=== PATIENT | male | born 1935 | race Caucasian/White ===

== ENCOUNTER 2016-08-23 10:21 | Emergency (ER) | payer MEDICARE, OTHER ==
[~2016-08-23] VITALS: Ht 182.9 cm; Wt 104.5 kg
[2016-08-23 10:29] VITALS: BP 141/77; PULSE 86; RESP 14; TEMP 99.3; O2SAT 95
[2016-08-23] MEDS ORDERED: TETANUS/DIPHTHERIA TOXOID ADULT 0.5 ML VIAL IM ONE (10:45)
--- NOTE | 2016-08-23 10:47 | PD ---
HPI Chief Complaint: Fall Time Seen by Provider: 10:36 Travel History International Travel<30 days: No Contact w/Intl Traveler<30days: No Traveled to known affect area: No History of Present Illness HPI 80-year-old male complains of right-sided chest wall pain and right knee pain. Patient fell 2 days ago in a parking lot. Patient denies loss of consciousness. Patient denies any headache or neck pain. Patient denies any back pain. Patient states that he has sharp pain localized to the anterior aspect the right chest wall. Patient denies any shortness of breath. Patient states that the pain is worse with deep breathing. Patient complains of sharp pain localized to the right knee with increasing swelling right knee since the fall. Patient denies any weakness or numbness of extremity. Patient states that he has an abrasion to the right knee. Patient states that he is not up-to- date with TD booster. PFSH Social History Tobacco Use: No Allergies-Medications (Allergen,Severity, Reaction): Coded Allergies: No Known Allergies (Unverified , 08/23/16) Reported Meds & Prescriptions Reported Meds & Active Scripts Active Keflex (Cephalexin) 500 Mg Cap 500 Mg PO Q8H Mobic (Meloxicam) 15 Mg Tab 15 Mg PO DAILY Review of Systems General / Constitutional: No: Fever Eyes: No: Visual changes HENT: No: Headaches Cardiovascular: No: Chest Pain or Discomfort Respiratory: No: Shortness of Breath Gastrointestinal: No: Abdominal Pain Genitourinary: No: Dysuria Musculoskeletal: Positive: Pain Skin: No Rash Neurologic: No: Weakness Psychiatric: No: Depression Endocrine: No: Polydipsia Hematologic/Lymphatic: No: Easy Bruising Physical Exam Narrative GENERAL: Well-nourished, well-developed patient. SKIN: Focused skin assessment warm/dry. HEAD: Normocephalic. EYES: No scleral icterus. No injection or drainage. NECK: Supple, trachea midline. No JVD or lymphadenopathy. CARDIOVASCULAR: Regular rate and rhythm without murmurs, gallops, or rubs. RESPIRATORY: Breath sounds equal bilaterally. No accessory muscle use. GASTROINTESTINAL: Abdomen soft, non-tender, nondistended. MUSCULOSKELETAL: No cyanosis, or edema. BACK: Nontender without obvious deformity. No CVA tenderness. Patient has abrasion prepatellar area of the right knee. Patient has soft tissue swelling with effusion noted right knee. Patient has moderate diffuse tenderness of the right knee joint. Limited range of motion of the right knee secondary to pain. Sensorimotor function distally intact. Patient has mild to moderate tenderness on palpation anterior chest wall low rib cage area. No crepitus no deformity noted. Breath sounds equal bilaterally. Data Data Last Documented VS Vital Signs Date Time Temp Pulse Resp B/P Pulse Ox O2 Delivery O2 Flow Rate FiO2 08/23/16 13:18 138/78 08/23/16 10:29 99.3 86 14 95 Orders Ribs, Uni (W/Exp Cxr-Min 3vw) (08/23/16 10:41) Knee, Complete (4vws) (08/23/16 10:41) Tetanus/Diphtheria Tox Adult (Tetanus/Di (08/23/16 10:45) Lidocai-Epi 1%-1:100,000 Inj (Xylocaine- (08/23/16 12:30) Wound Care (08/23/16 12:53) MDM Medical Decision Making Medical Screen Exam Complete: Yes Emergency Medical Condition: Yes Interpretation(s) 12:15 PM. X-ray of the right knee and right ribs shows no hemopneumothorax. No acute fracture. Small knee joint effusion. Differential Diagnosis Differential diagnosis including contusion, fracture, dislocation, hemopneumothorax. Narrative Course 80-year-old male with right chest wall injury and right knee injury. Status post fall 2 days ago. TD booster given. Polysporin ointment with dressing. Nolberto wrap right knee. Procedures Procedure Narrative 1% lidocaine with epinephrine. Betadine wash. Right knee aspiration done with 10 cc syringe and a 16-gauge needle. Patient has 70 cc of reddish fluid recovered from the knee joint aspiration. Diagnosis Primary Impression: Chest wall contusion Qualified Code: S20.211A - Chest wall contusion, right, initial encounter Additional Impressions: Effusion, right knee Abrasion, right knee, initial encounter Patient Instructions: General Instructions Med/Other Pt SpecificInfo: Prescription(s) given Scripts Cephalexin (Keflex)500 Mg [id number] Mg PO Q8H #15 CAP Ref 0 Prov:Chaitanya Blanco MD 08/23/16 Meloxicam (Mobic)15 Mg Tab15 Mg PO DAILY #20 TAB Prov:Chaitanya Blanco MD 08/23/16 Disposition: 01 DISCHARGE HOME Condition: Stable Chaitanya Blanco MD Aug 23, 2016 10:47
--- NOTE | 2016-08-23 11:56 | RADHPO ---
EXAM DATE/TIME: 08/23/2016 11:22 [facility] COMPARISON: No previous studies available for comparison. INDICATIONS : Lower right rib pain post fall three days ago. MEDICAL HISTORY : None. SURGICAL HISTORY : None. ENCOUNTER: Initial ACUITY: 3 days PAIN SCORE: 7/10 LOCATION: Right lower chest FINDINGS: Expiratory chest reveals no evidence for a pneumothorax. There is good visualization of the right lower ribs. I don't see a displaced rib fracture although e xamination is suboptimal because of patient's large body habitus. CONCLUSION: Negative pneumothorax, negative for displaced rib fracture. Edwin Ontiveros MD FACR on August 23, 2016 at 11:51 Board Certified Radiologist. This report was verified electronically.
--- NOTE | 2016-08-23 11:58 | RADHPO ---
EXAM DATE/TIME: 08/23/2016 11:27 [facility] COMPARISON: No previous studies available for comparison. INDICATIONS : Right side knee pain post fall three days ago. MEDICAL HISTORY : None. SURGICAL HISTORY : None. ENCOUNTER: Initial ACUITY: 3 days PAIN SCORE: 8/10 LOCATION: Right knee. FINDINGS: There is a small joint effusion evident. Degenerative changes are present in the knee with bone tip culating with bone in the medial compartment. Osteophytes are projected in the patellofemoral compartment. CONCLUSION: 1. Degenerative changes. 2. Small joint effusion. 3. I don't see a fracture. Edwin Ontiveros MD FACR on August 23, 2016 at 11:51 Board Certified Radiologist. This report was verified electronically.
[2016-08-23] MEDS ORDERED: LIDOCAINE 1%/EPINEPHrine 1:100,000 SOLN 20 ML VIAL INFIL ONE (12:30)
[2016-08-23] MEDS ORDERED: MOBI15TA PO (12:47)
[2016-08-23] MEDS ORDERED: CEPH-460 PO (12:49)
[2016-08-23 13:18] VITALS: BP 138/78
== END 2016-08-23 13:21 | disposition home or self-care (01) ==
LOC: PHED 10:30
DX: S20.211A Contusion of right front wall of thorax, initial encounter (principal); S80.211A Abrasion, right knee, initial encounter; M25.461 Effusion, right knee; W19.XXXA Unspecified fall, initial encounter; Y92.481 Parking lot as the place of occurrence of the external cause; Z23 Encounter for immunization
CPT/HCPCS: 20610; 71101; 73564; 90471; 90714